=== PATIENT | female | born 2000 | race Caucasian/White ===

== ENCOUNTER → 2022-01-09 15:28 | Outpatient (CLI) | payer OTHER, SELFPAY ==
[2022-01-09 16:17] LABS: Add Manual Diff / Slide Review NO; Basophils Absolute Auto 0 /uL (0-100); Basophils Percent Auto 0.1 % (0-2); Eosinophils Absolute Auto 0 /uL (0-450); Eosinophils Percent Auto 0.3 % (2-4); Hematocrit 35.5 % (36-46); Hemoglobin 11.9 g/dL (12.0-16.0); Lymphocytes Absolute Auto 1400 /uL (1100-4500); Lymphocytes Percent Auto 16.9 % (25-40); Mean Corpuscular HGB Conc 33.6 % (30-36); Mean Corpuscular Hemoglobin 30.1 PG (26-34); Mean Corpuscular Volume 89.6 fL (80-100); Monocytes Absolute Auto 400 /uL (0-900); Monocytes Percent Auto 5.5 % (3-14); Neutrophils Absolute Auto 6200 /uL (1500-7000); Neutrophils Percent Auto 77.2 % (50-75); Platelet Count 158 X10^3/uL (150-400); Red Blood Cell Count 3.96 X10^6/uL (4.0-5.2)
[2022-01-09 19:09] LABS: Appearance Urine UA CLEAR; Bilirubin Urine UA NEGATIVE (NEGATIVE); Color Urine UA YELLOW; Glucose Urine UA NEGATIVE (Negative); Ketones Urine UA NEGATIVE (NEGATIVE); Leukocyte Esterase Urine UA NEGATIVE (NEGATIVE); Nitrite Urine UA NEGATIVE (Negative); Occult Blood Urine UA NEGATIVE (Negative); Protein Urine UA NEGATIVE (Negative); Specific Gravity Urine UA 1.015 (1.000-1.035); Urobilinogen Urine UA 0.2 E.U./dL (0.2)
[2022-01-09 19:28] LABS: Rubella Antibody IgG 35.1 IU/mL (>15)
[2022-01-09 19:33] LABS: Hepatitis B Surface Antigen NEGATIVE s/c (NEGATIVE)
[2022-01-09 19:47] LABS: HIV 1 & 2 Ab/Ag 4th Gen Combo NEGATIVE (NEGATIVE); Hep C Virus Ab w/Reflex Quant NEGATIVE s/c (NEGATIVE)
[2022-01-10 07:40] LABS: RPR Screen Non Reactive (Non Reactive)
[2022-01-10 11:25] LABS: Varicella IgG Antibody <135 index (Immune >165)
== END ==
PROVIDERS: Referring Provider Family Medicine; Visit Provider Family Medicine
DX: Z34.00 Encounter for supervision of normal first pregnancy, unspecified trimester (principal)
CPT/HCPCS: 36415; 80055; 81003; 86787; 86803; 86850; 86900; 86901; 87086; 87389

== ENCOUNTER → 2022-03-06 14:07 | Outpatient (CLI) | payer OTHER, SELFPAY | PROVIDERS: Visit Provider Family Medicine | DX: R35.0 Frequency of micturition (principal) | CPT/HCPCS: 87077; 87086; 87147 ==

== ENCOUNTER → 2022-03-18 15:47 | Outpatient (CLI) | payer OTHER, SELFPAY ==
[2022-03-18 16:54] LABS: Appearance Urine UA CLEAR; Bilirubin Urine UA NEGATIVE (NEGATIVE); Color Urine UA YELLOW; Glucose Urine UA NEGATIVE (Negative); Ketones Urine UA NEGATIVE (NEGATIVE); Leukocyte Esterase Urine UA NEGATIVE (NEGATIVE); Nitrite Urine UA NEGATIVE (Negative); Occult Blood Urine UA NEGATIVE (Negative); Protein Urine UA NEGATIVE (Negative); Specific Gravity Urine UA <=1.005 (1.000-1.035); Urobilinogen Urine UA 0.2 E.U./dL (0.2)
[2022-03-18 17:03] LABS: Bacteria Urine None Seen; Culture Indicated Urine Cult Not Indicated; RBC Urine None Seen (0-5/HPF); Urine Comments Microscopic Normal; WBC Urine None Seen (0-5/HPF)
== END ==
PROVIDERS: Referring Provider Family Medicine; Visit Provider Family Medicine
DX: O23.42 Unspecified infection of urinary tract in pregnancy, second trimester (principal)
CPT/HCPCS: 81001

== ENCOUNTER → 2022-03-19 10:54 | Outpatient (CLI) | payer OTHER, SELFPAY | PROVIDERS: Visit Provider Family Medicine | DX: N39.0 Urinary tract infection, site not specified (principal) | CPT/HCPCS: 87086 ==

== ENCOUNTER → 2022-03-26 14:24 | Outpatient (CLI) | payer OTHER, SELFPAY ==
--- NOTE | 2022-03-26 14:26 | DI.US.S_ITS ---
PROCEDURE: US OB >= 14 WEEKS FETUS INDICATIONS: 20 WEEK OB OUTSIDE/PRIOR DATING DATA: Last menstrual period (LMP): 10/28/2021 LMP-based estimated date of delivery (TAMEKA): 08/04/2022. First dating scan (date and location): 03/26/2022. Estimated date of delivery (TAMEKA) from first dating scan: 08/07/2022. The calculations are made using the ultrasound TAMEKA of 08/07/2022. TECHNIQUE: Real-time scanning was performed of the fetus, with image documentation and biometric measurements. COMPARISON: None. FINDINGS: General: A single living intrauterine gestation is present. Presentation: Breech. Placenta: Placental position is anterior , without previa. Amniotic fluid index: 6.4 cm. Maternal cervical canal: 4.9 cm long. Normal lower limit is 2.5 cm. biometrics: Biparietal diameter: 20 weeks 3 days Head circumference: 20 weeks 6 days Abdominal circumference: 21 weeks 1 day Femur length: 20 weeks 6 days Clinically estimated gestational age: 21 weeks 2 days Composite gestational age from present scan: 20 weeks 6 days Estimated weight and percentile: 392 g; 38th percentile Anatomic survey: Neuro: Ventricles are non-dilated at less than 10 mm. Cisterna magna is normal at 3-11 mm. Cerebellum is normal in size and morphology. Nuchal skin fold: Normal at less than 6 mm between 14-21 weeks gestational age. Face: Nose and lips, facial profile are normal. Spine: Suboptimally visualized. Heart: 4-chambered heart is present, with normal ventricular outflow tracts. Diaphragm: Diaphragm is intact. Stomach: Left-sided stomach is present. Kidneys: No hydronephrosis. Normal is less than 5 mm in 2nd trimester, less than 7 mm in 3rd trimester. Cord: Suboptimally visualized and placental cord insertion site. Bladder: Normal in size. Extremities: Right hand not well visualized. IMPRESSION: 1. 20 week 6 day single living IUP corresponding to ultrasound TAMEKA of 08/07/2022. 2. Limited anatomic survey as above. Follow-up recommended. 3. Amniotic fluid index less than the 5th percentile for age which can also be reassessed on follow-up examination. We strive to produce accurate, complete, and clear reports of imaging services. To assist us in improving patient care, this report was composed using standard report templates and voice recognition software. Therefore, it may contain abnormal punctuation, insertions and/or omissions. Occasional wrong-word or sound-alike substitutions may occur. Though we review the report and make efforts to correct it, we do recommend that the report be read carefully in proper context to recognize any text inaccuracies. Dictated by: Heath PATTON Interpreted: Barbara White MD on 03/27/2022 at 13:05 Transcribed by: KESHIA on 03/27/2022 at 13:10 Approved by: Barbara White M.D. on 03/27/2022 at 15:25
== END ==
PROVIDERS: Referring Provider Family Medicine; Visit Provider Family Medicine
DX: Z34.02 Encounter for supervision of normal first pregnancy, second trimester (principal); Z3A.20 20 weeks gestation of pregnancy
CPT/HCPCS: 76811

== ENCOUNTER → 2022-05-27 15:35 | Outpatient (CLI) | payer OTHER, SELFPAY ==
[2022-05-27 17:15] LABS: Add Manual Diff / Slide Review NO; Basophils Absolute Auto 0 /uL (0-100); Basophils Percent Auto 0.3 % (0-2); Eosinophils Absolute Auto 100 /uL (0-450); Eosinophils Percent Auto 0.7 % (2-4); Hematocrit 31.8 % (36-46); Hemoglobin 11.1 g/dL (12.0-16.0); Lymphocytes Absolute Auto 1700 /uL (1100-4500); Lymphocytes Percent Auto 17.7 % (25-40); Mean Corpuscular HGB Conc 34.9 % (30-36); Mean Corpuscular Hemoglobin 31.2 PG (26-34); Mean Corpuscular Volume 89.3 fL (80-100); Monocytes Absolute Auto 600 /uL (0-900); Neutrophils Absolute Auto 7400 /uL (1500-7000); Neutrophils Percent Auto 75.3 % (50-75); Platelet Count 158 X10^3/uL (150-400); Red Blood Cell Count 3.57 X10^6/uL (4.0-5.2); Red Cell Distribution Width 13.1 % (11.6-14.8); White Blood Cell Count 9.9 X10^3/uL (4.5-11.0)
[2022-05-27 17:37] LABS: GTT (PREG) 1 Hour PP 50gm Dose 145 mg/dL (76-139)
== END ==
PROVIDERS: Referring Provider Family Medicine; Visit Provider Family Medicine
DX: Z34.92 Encounter for supervision of normal pregnancy, unspecified, second trimester (principal); Z3A.25 25 weeks gestation of pregnancy
CPT/HCPCS: 36415; 82950; 85025

== ENCOUNTER → 2022-05-29 07:03 | Outpatient (CLI) | payer OTHER, SELFPAY ==
[2022-05-29 08:11] LABS: Glucose Fasting 81 mg/dL (70-100)
[2022-05-29 09:59] LABS: Glucose 1 Hour 164 mg/dL (70-170)
[2022-05-29 10:37] LABS: Glucose Tol Interpretation INTERPRETATION
[2022-05-29 11:05] LABS: Glucose 3 Hour 124 mg/dL (70-115)
[2022-05-29 11:34] LABS: Glucose 2 Hour 149 mg/dL (70-140)
== END ==
PROVIDERS: Referring Provider Family Medicine; Visit Provider Family Medicine
DX: O24.419 Gestational diabetes mellitus in pregnancy, unspecified control (principal)
CPT/HCPCS: 36415; 82951; 82952

== ENCOUNTER → 2022-06-12 08:51 | Outpatient (CLI) | payer OTHER, SELFPAY ==
--- NOTE | 2022-06-14 16:59 | DIAB.GDA ---
Initial Gestational Diabetes Assessment Name: Joyce Lockwood Date: 06/12/22 Time: 295-8900 Dx: Gestational Diabetes Provider: Manuelito TAMEKA: 08/11/22 Weeks: 31-32 Joyce presents today for initial visit. She is having a boy! Endorses FH of GDM with her mother x 2 pregnancies, and T2DM with maternal grandmother. Mother is an RN and has been about to provide some education on GDM and nutrition. States she has reduced carb intake drastically. Has been writing down food log and BG. Food journal indicates <175g CHO per day, below [employer] CONSULTING ARCHITECT for . 06/10 8am B: meatlover and egg bake and [facility] bar 20g CHO 11a L: low carb casserole, meat, veggies, + cottage cheese 0-10g CHO 7p D: salad, 0 sugar yogurt with granola Limited snacks Beverages: 96-128oz water, Sf beverages 17oz Anthropometrics: Ht: 65 Wt: 170# reported Prepregnancy wt: 155# Physical Activity: 30-45 min walks daily Self-Monitoring Blood Glucose: Checking FBG and 2 hour pc. All FBG in goal. Most postprandial <100 mg/dL supporting reported low carb diet. Goal for 100-120mg/dL 2 hours postprandial. One elevation after fast food intake. Date Pre Post Pre Post Pre Post HS 06/06 71 119 70 103 06/07 82 98 77 129 Fast food 06/08 76 74 95 79 06/09 77 112 78 06/10 80 82 78 109 06/11 77 79 94 79 06/12 76 Diabetes Medications: None Pertinent Labs: screen: 145 H; OGTT: 81, 164, 149H, 124H Nutrition Rx: Carbohydrates: Daily: 180-210g CHO Meal: 45-60g lunch and dinner; 30g breakfast Snack: 15-30g Nutrition Diagnosis: Altered nutrition related lab value r/t GDM dx aeb recent OGTT Inadequate CHO intake for r/t new GDM dx, nutrition knowledge deficit, and reduction in carbs to avoid hyperglycemia aeb pt report, postprandial bg <100mg/dL. Inconsistent energy intake r/t nutrition knowledge deficit aeb diet recall with >5 hours between meals sometimes Intervention: This participant was very receptive. Provided appropriate educational handouts. Discussed the following topics: GDM pathophysiology and impact of hyperglycemia on mom and baby Risk for T2DM for mom and baby in the future Ways to reduce risk T2DM Plate Method, meal timing, carb counting, pairing macronutrients and spreading out CHO for better BG management Blood glucose goals (FBG: <95 and 2 hour 100-120 mg/dL); importance of checking 4x per day (FBG and pc) Impact of macronutrients on blood glucose Recommended servings for carbohydrates at meals and snacks Brainstormed appropriate meal plan based on her food preferences Role of physical activity and following provider guidelines for safety Goals: Add some carbs to meals (start with 45g CHO at lunch and dinner, min 30g) Add afternoon snack- new Pair CHO and pro for meals/snacks Follow-up: FARZANA MOORE follow-up in two weeks Xin Sim RDN, OSCAR Certified Diabetes Care and Cat Skinner T: [phone] F: [phone] [email or web address] Thank you for this referral
== END ==
PROVIDERS: Referring Provider Family Medicine; Visit Provider Family Medicine
DX: O24.419 Gestational diabetes mellitus in pregnancy, unspecified control (principal); Z3A.31 31 weeks gestation of pregnancy; Z71.3 Dietary counseling and surveillance
CPT/HCPCS: 97802

== ENCOUNTER → 2022-06-26 08:49 | Outpatient (CLI) | payer OTHER, SELFPAY ==
--- NOTE | 2022-07-01 16:42 | DIAB.GDFU ---
Follow-up Gestational Diabetes Assessment Name: Joyce Lockwood Date: 06/26/22 Time: 572-224d Dx: Gestational Diabetes Provider: Manuelito TAMEKA: 08/11/22 Weeks: 32-33 Joyce presents for follow-up GDM visit. States she has had a few meals with >60g CHO, which have resulted in hyperglycemia, ie raisin bran, pasta, fast food with soda. Last visit she was not eating much carbs at all. This visit, seems difficult to balance the meals with too much vs not enough. Will review carb portions today. Has added afternoon snack and pairing macronutrients as discussed last visit. Diet recall: 7-8a: oatmeal with almond bar and almond or cheese 11a: wrap with cheese and meat and chips 3p: apple and PB 7p: pro with veggie and 1c CHO (mac n cheese, or rice) 9p: half apple wit hPB or crackers with cheese or low kcal ice cream States she is hopeful that her spouse will return from deployment in July. Anthropometrics: Ht: 65 Wt: 173# Prepregnancy wt: 155# Physical Activity: waking daily 30-45min Self-Monitoring Blood Glucose: FBG in goal. Some elevated pc readings r/t higher carb intake. 28% elevated postprandial readings. Date Pre Post Pre Post Pre Post HS 06/20 81 102 102 96 06/21 82 90 129 fast food and soda 75g+ 154 2c pasta 90g 06/22 79 121 68 94 8/7 81 106 102 90 8 80 73 93 130 8/9 80 128 raisinbran 84 78 8/ 77 Diabetes Medications: None Pertinent Labs: screen: 145 H; OGTT: 81, 164, 149H, 124H Nutrition Rx: Carbohydrates: Daily: 180-210g CHO Meal: 45-60g lunch and dinner; 30g breakfast Snack: 15-30g Nutrition Diagnosis: Altered nutrition related lab value r/t GDM dx aeb recent OGTT Inadequate CHO intake for r/t new GDM dx, nutrition knowledge deficit, and reduction in carbs to avoid hyperglycemia aeb pt report, postprandial bg <100mg/dL. - improved Inconsistent energy intake r/t nutrition knowledge deficit aeb diet recall with >5 hours between meals sometimes- improved Intervention: This participant was very receptive. Provided appropriate educational handouts. Discussed the following topics: Recent blood sugar results and impact of food and hormones Review of macronutrient recommendations during Reinforced 45-60g CHO per meal and what that may look like Benefits, resources, and nutrition for recommendations for nutrition and physical activity recommendations for T2DM risk reduction OGTT at 6-12 weeks Potential for checking blood sugars twice per week (goal: fasting <100 mg/dL and 2 hour pc <140 mg/dL) until 6 week check-up HgA1c q 1-3 years. Goals: Add some carbs to meals (start with 45g CHO at lunch and dinner, min 30g)- met Add afternoon snack- met Pair CHO and pro for meals/snacks - met Keep meals to 45-60g CHO for lunch and dinner (about one cup) - new Try writing down foods when BG are elevated- new Follow-up: FARZANA MOORE follow-up in two weeks Xin Sim RDN, OSCAR Certified Diabetes Care and Litigation Partner T: [phone] F: [phone] [email or web address] Thank you for this referral
== END ==
PROVIDERS: PCP Physician Assistant; Referring Provider Family Medicine; Visit Provider Family Medicine
DX: O24.419 Gestational diabetes mellitus in pregnancy, unspecified control (principal); Z3A.32 32 weeks gestation of pregnancy; Z71.3 Dietary counseling and surveillance
CPT/HCPCS: 97803

== ENCOUNTER → 2022-07-16 14:50 | Outpatient (CLI) | payer OTHER, SELFPAY ==
--- NOTE | 2022-07-16 15:48 | DIAB.GDFU ---
Follow-up Gestational Diabetes Assessment Name: Joyce Lockwood Date: 07/16/22 Time: 2-215p Dx: Gestational Diabetes Provider: Manuelito TAMEKA: 08/11/22 Weeks: 36 Joyce presents for a quick GDM check-in. BG and diet seem to be going well. Weight gain seems to be trending well. Reports surprisingly low BG with egg noodles, which seem to be lower in carb and higher in pro than some pastas. 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 Anthropometrics: Wt: 176# Prepregnancy wt: 150# Physical Activity: Not discussed today Self-Monitoring Blood Glucose: All in goal. Some pc readings <100 however she reports adequate CHO intake and pairing with pro Diabetes Medications: None Pertinent Labs: screen: 145 H; OGTT: 81, 164, 149H, 124H Nutrition Rx: Carbohydrates: Daily: 180-210g CHO Meal: 45-60g lunch and dinner; 30g breakfast Snack: 15-30g Nutrition Diagnosis: Altered nutrition related lab value r/t GDM dx aeb recent OGTT Intervention: This participant was very receptive. Provided appropriate educational handouts. Discussed the following topics: Recent blood sugar results Carb portions at meals and label reading knowledge Future pregnancies and risk of GDM Goals: Keep meals to 45-60g CHO for lunch and dinner (about one cup) - met Try writing down foods when BG are elevated- d/c Follow-up: FARZANA MOORE follow-up prn Xin Sim RDN, OSCAR Certified Diabetes Care and Package Delivery Driver T: [phone] F: [phone] [email or web address] Thank you for this referral
== END ==
PROVIDERS: PCP Physician Assistant; Referring Provider Family Medicine; Visit Provider Family Medicine
DX: O24.419 Gestational diabetes mellitus in pregnancy, unspecified control (principal); Z3A.36 36 weeks gestation of pregnancy; Z71.3 Dietary counseling and surveillance
CPT/HCPCS: 97803

== ENCOUNTER → 2022-07-16 14:51 | Outpatient (CLI) | payer OTHER, SELFPAY ==
[2022-07-17 11:37] LABS: Strep Grp B PCR POS for Grp B Strep
== END ==
PROVIDERS: PCP Physician Assistant; Visit Provider Family Medicine
DX: Z36.85 Encounter for antenatal screening for Streptococcus B (principal)
CPT/HCPCS: 87653

== ENCOUNTER 2022-08-13 19:03 | Inpatient (IN) | payer OTHER, SELFPAY ==
[2022-08-13 19:29] VITALS: BP 123/62
[2022-08-13 20:16] LABS: Add Manual Diff / Slide Review NO; Basophils Absolute Auto 0 /uL (0-100); Basophils Percent Auto 0.3 % (0-2); Eosinophils Absolute Auto 0 /uL (0-450); Eosinophils Percent Auto 0.4 % (2-4); Hematocrit 30.1 % (36-46); Hemoglobin 10.1 g/dL (12.0-16.0); Lymphocytes Absolute Auto 1800 /uL (1100-4500); Lymphocytes Percent Auto 21.9 % (25-40); Mean Corpuscular HGB Conc 33.6 % (30-36); Mean Corpuscular Volume 86.5 fL (80-100); Monocytes Absolute Auto 700 /uL (0-900); Monocytes Percent Auto 8.3 % (3-14); Neutrophils Absolute Auto 5700 /uL (1500-7000); Neutrophils Percent Auto 69.1 % (50-75); Platelet Count 158 X10^3/uL (150-400); Red Blood Cell Count 3.48 X10^6/uL (4.0-5.2); Red Cell Distribution Width 13.9 % (11.6-14.8); White Blood Cell Count 8.2 X10^3/uL (4.5-11.0)
[2022-08-13] MEDS: DINOPROSTONE VAG (CERVIDIL) 10 MG VAG (20:18)
[2022-08-13 21:56] LABS: COVID19 -Nasal RAPID Negative (Negative)
[2022-08-14] MEDS: PENICILLIN G POTASSIUM 5,000,000 UNIT in DEXTROSE 5% IN WATER 250 ML 250 UNIT IV (06:54)
--- NOTE | 2022-08-14 10:37 | PM.OBHP.IH.1 ---
OB HPI Date/Time Date of admission: 08/14/22 Date Patient Seen: 08/14/22 History of Present Condition Chief complaint: TAMEKA Calculator Estimated Delivery Date Method Current WG Current Estimate 08/11/22 Manual 40w 3d Final TAMEKA - FLORENCIO Other Estimates 08/11/22 LMP (Uncertain) 40w 3d 08/09/22 Ultrasound #1 40w 5d Estimated Gestational Age (weeks): 40w3d : 1 Para: 0 Narrative: Pt is a 22yo at 40w3d here for elective IOL. She has been feeling her baby move regularly. She did lose her mucus plug overnight with some blood discharge, but otherwise no vaginal bleeding. Pt denies any LOF. She is khari intermittently, primarily in her back. Her has been complicated by GDMA1 with excellent blood sugar control care: good care, initiated at week # (9) and pounds weight gain (28) Dating criteria OB: LMP confirmed by 1st trimester US Ultrasounds: normal 1st trimester US and normal mid trimester US Obstetrical complications: gestational diabetes Medical complications OB: none Preadmission Labs Last OB Lab Results: Blood Type A Positive 08/13/22 19:50 Antibody Screen Negative 08/13/22 19:50 Hematocrit 30.1 % (36-46) L 08/13/22 19:50 Hemoglobin 10.1 g/dL (12.0-16.0) L 08/13/22 19:50 Hepatitis B Surface Antigen Negative s/c (NEGATIVE) 01/09/22 15:42 Hepatitis C Antibody Negative s/c (NEGATIVE) 01/09/22 15:42 Rubella Antibody 35.1 IU/mL (>15) 01/09/22 15:42 Varicella-Zoster IgG Antibody <135 index (Immune >165) L 01/09/22 15:42 Glucose 1 Hour 145 mg/dL (76-139) H 05/27/22 15:53 Group B Streptococcus (PCR) Pos for grp b strep H 07/16/22 14:51 Glucose Tolerance Testing: Fasting (81), 1 hr (164), 2 hr (149) and 3 hr (124) -: Urine: negative External Labs -: Urine: negative Evaluation Evaluation Variability: Moderate (11-25) monitor accelerations: Present Monitor Decelerations: Absent Contraction Frequency (minutes): 5 Uterine Contraction Intensity: Mild Status: Category l Dilation (cm): 3 Effacement (%): 80 Dilation: 3-4 cm Effacement: >/=80% station: -1 Position of cervix: mid Consistency: soft Gates score: 10 PFSH Medical History (Updated 06/12/22 @ 15:06 by Rossana Billings MD) COVID UTI (urinary tract infection) Surgical History (Updated 12/27/21 @ 15:19 by Shwetha Oliva, RN) H/O wisdom tooth extraction Family History (Updated 12/27/21 @ 15:21 by Shwetha Oliva, RN) Father Hypertension Grandmother Diabetes mellitus Breast cancer Grandfather Diabetes mellitus Social History marital status: unmarried,living together household members: significant other and friend(s) lives independently: Yes housing: apartment pets and animals: No education level: high school occupational status: employed ([employer] the [employer]) current occupational exposures/hazards: No seatbelt use: always water heater temp set < 120 deg: Yes (will check) working smoke detector in home: Yes firearms in home: Yes firearms unloaded and locked: Yes do you feel safe at home: Yes Smoking Status: Former smoker second hand exposure: No alcohol intake: former substance use type: does not use during the past year weight has: remained stable well-balanced diet: daily or most days daily servings fruits/ve-4 caffeine: Yes (200mg a day) Type(s) of exercise: walking Meds Home Medications and Allergies Home Medications Medication Instructions Recorded Confirmed Type prenat.vits,belgica,ngr-fnro-ocdcn 1 tab PO DAILY 12/26/21 08/13/22 History double electric breast pump and #1 05/28/22 08/13/22 Rx supplies glucometer #1 05/30/22 08/13/22 Rx lancets #90 05/30/22 08/13/22 Rx test strips #90 05/30/22 08/13/22 Rx valacyclovir 1 gram tablet 1,000 mg PO BID #20 tabs 07/23/22 08/13/22 Rx Allergies Allergy/AdvReac Type Severity Reaction Status Date / Time No Known Drug Allergies Allergy Unverified 08/13/22 14:02 OB Exam Narrative Exam Narrative: Gen: NAD, sitting comfortably in bed, appears well CV: RRR, no murmurs Resp: clear to auscultation bilaterally Abd: soft, nontender, gravid Ext: no edema Objective Labs Result Diagrams: 08/13/22 19:50 Labs: Laboratory Results - last 24 hr 08/13/22 08/13/22 08/13/22 19:50 19:50 19:50 WBC 8.2 RBC 3.48 L Hgb 10.1 L Hct 30.1 L MCV 86.5 MCH 29.0 MCHC 33.6 RDW 13.9 Plt Count 158 Neut % (Auto) 69.1 Lymph % (Auto) 21.9 L [place] % (Auto) 8.3 Eos % (Auto) 0.4 L Baso % (Auto) 0.3 Neut # (Auto) 5700 Lymph # (Auto) 1800 [place] # (Auto) 700 Eos # (Auto) 0 Baso # (Auto) 0 SARS-CoV-2 (PCR) Negative Blood Type A Positive Antibody Screen Negative Assessment and Plan Assessment and Plan Assessment and Plan narrative: 22yo at 40w3d here for elective IOL. complicated by GDMA1. GBS positive, Rh positive. - Expectant management, anticipate - FHT reassuring - GBS positive, penicillin prophylaxis initiated - Desires natural methods for pain control - Start pitocin, titrate as tolerated
[2022-08-14] MEDS: PENICILLIN G POTASSIUM 3,000,000 UNIT/50 ML FROZ.PIGGY 100 UNIT IV ×3 (11:00→21:05)
[2022-08-14] MEDS: OXYTOCIN PREMIX 30 UNIT/500 ML PLAST..BAG IV (13:33)
[2022-08-14] MEDS: ONDANSETRON 4 MG/2 ML INJ IV (16:00)
--- NOTE | 2022-08-14 17:13 | PM.OBPNLAB ---
Date/Time Date Patient Seen: 08/14/22 Time Patient Seen: 17:13 Pain Control Pain control: tolerating well Pelvic Exam Dilation (cm): 3.5 Effacement (%): 90 station: -1 Amniotic membrane status: Ruptured Comments: After informed consent, AROM performed with production of clear fluid. Contractions Pitocin rate (mU/min): 7 Contraction frequency (min): 3 Contraction intensity: Mild Status status: Category l Heart Rate Baseline: 135 Monitor Accelerations: Present Monitor Decelerations: Absent Monitor Variability: Moderate Assessment and Plan Comments: 22yo at 40w3d here for elective IOL.? complicated by GDMA1.? AROM performed with production of clear fluid. Minimal cervical change thus far. GBS positive, Rh positive. - Expectant management, anticipate - FHT reassuring - GBS positive, continue penicillin prophylaxis - Desires natural methods for pain control - Continue pitocin, titrate as tolerated
[2022-08-14] MEDS: fentaNYL 100 MCG/2 ML INJ 50 MCG IV (20:15)
--- NOTE | 2022-08-15 04:50 | P.PCNOB_ITS ---
Labor & Delivery Delivery date: 08/15/22 Cervical ripening method: per Cervidil protocol Induction method: per pitocin protocol Delivery augmentation: rupture of membranes Delivery monitor: external FHT and external uterine Route of delivery: Episiotomy description: None L&D Laceration Description: Perineal - 2nd Degree Delivery repair: chromic Estimated blood loss (mL): 25 Anesthesia Type: Other (Nitrous oxide) Complications: None Narrative: PROCEDURE: at 40w3d presented for elective IOL and was admitted to Labor and Delivery. She received cervidil for IOL, followed by pitocin. The patient progressed through the 1st stage over 6 hours. FHT were Category I during the 1st stage. Pain was controlled with nitrous oxide. After adequate GBS prophylaxis, AROM was performed with production of clear fluid. The patient progressed through the 2nd stage over 2 hours and delivered a viable male with compound presentation with the right hand with APGARs 1/3/5 at 1:11 via without complications. During the second stage there was a single prolonged decel to 100bpm for 6 minutes that recovered with hands and knees positioning, approximately 1.5 hrs prior to delivery. FHT were otherwise Category II with intermittent variable decels with good recovery to baseline, moderate variability, and accels present. Nuchal and body cord x1 were reduced at the perineum. There was terminal meconium present. The cord was promptly cut and clamped due to no respiratory effort and poor tone, and the baby was taken to the warmer for resuscitation. The perineum and vagina were inspected with 2nd degree laceration repaired with 2-O Chromic. PREPROCEDURE DIAGNOSIS: Intrauterine at 40w4d GDMA1 GBS positive RH positive POSTPROCEDURE DIAGNOSIS: Intrauterine at 40w4d, delivered Same as preprocedure [place] Baby 1: gender: Male Presentation: compound Position: Right Occiput Anterior Placenta delivery description: Spontaneous Cord Vessel Description: 3 Vessels, Nuchal Cord and Around Body x1 score (1 min): 1 score (5 min): 3 score (10 min): 5 weight: 7 lb 11.106 oz Narrative: The baby required PPV briefly, followed by prolonged CPAP. Was ultimately transitioned to high flow NC. He continued to have poor tone, and cooling was ultimately initiated due to concerns for HIE. CXR revealed right sided pneumothorax. He was tranferred to the for ongoing care. Plan for aftercare: Routine care
--- NOTE | 2022-08-15 05:38 | PM.OBDS.1 ---
Discharge Providers Provider Date of admission: 08/13/22 19:03 Discharge Date: 08/15/22 Primary care physician: Vinnie Hays PA-C Discharge provider: Rossana Billings MD Summary Hospital Course Diagnoses: 40w4d gestation GBS positive Rh positive GDMA1 Hospital Course: The pt presented for elective IOL. She received cervidil followed by pitocin for IOL. AROM was performed with production of clear fluid. She used nitrous for pain control. She progressed to complete and had an of a viable baby boy without complications. Terminal meconium and nuchal and body cord x 1 were present. 2nd degree perineal laceration was then repaired. The infant required resuscitation, and was ultimately transferred to due to ongoing oxygen requirement with pneumothorax and for cooling. The pt requested early discharge to be with her baby. At the time of discharge she was voiding, ambulating and passing flatus without difficulty. She had been able to pump with colostrum production. Her pain was well controlled. Her lochia was appropriate, and fundus was well below her umbilicus. She will f/u in 6 weeks for check. Peripartum Data Infant Delivery Method: Natural Vaginal Laceration Description: Perineal - 2nd Degree Episiotomy description: None Procedures: spontaneous vaginal delivery complications: none 1: Gender: Male Disposition of : NICU Discharge Diagnosis (1) GDM (gestational diabetes mellitus): Status: Acute (2) Spontaneous vaginal delivery: Status: Acute Status at Discharge Cognitive/behavioral status at discharge: oriented Functional status at discharge: independent ambulation Overall status at discharge: patient is progressing back to baseline Time Spent with Patient Time attestation: Total time spent providing and/or coordinating discharge services: Objective Labs Result Diagrams: 08/13/22 19:50 Exam Narrative Exam Narrative: Gen: NAD, sitting comfortably in bed, appears well CV: RRR, no murmurs Resp: clear to auscultation bilaterally Abd: soft, appropriately tender, fundus firm and below the umbilicus, nondistended Ext: no edema Discharge Plan Discharge Plan Patient Disposition: Home Discharge orders & Medications Prescriptions: Continued (DME) double electric breast pump and supplies See Rx Instructions .ROUTE .MEDSUPPLY Qty: 1 0RF Rx Instructions: As directed valacyclovir 1 gram tablet 1,000 mg PO BID Qty: 20 0RF prenat.vits,belgica,njk-gcmf-hluby Tablet 1 tab PO DAILY Discontinued (DME) glucometer See Rx Instructions .Route .MEDSUPPLY Qty: 1 2RF Rx Instructions: As directed (DME) test strips See Rx Instructions .Route .MEDSUPPLY Qty: 90 3RF Rx Instructions: As directed (DME) lancets See Rx Instructions .Route .MEDSUPPLY Qty: 90 3RF Rx Instructions: As directed Follow up/Referrals: Vinnie Hays PA-C [Primary Care Provider] - Rossana Billings MD [Physician] - 6 Weeks Diet/Activity/Treatments Diet: Diet as Tolerated and Regular Skin/Wound/Dressing Care Report to your healthcare provider any signs of infection, such as:: chills, fever, increased pain and unusual drainage Visit Report/Discharge Packet Instructions: DI for Labor and Delivery, Vaginal Stand Alone Forms: Discharge: Care Visit Report Forms: Patient Portal/API, Stroke Signs & Symptoms Discharge Data Primary Care Provider: Vinnie Hays Discharges patient from system. Discharge Date/Time: 08/15/22 08:11
[2022-08-15] MEDS: IBUPROFEN 600 MG TABLET PO (06:36)
[2022-08-15] MEDS: ACETAMINOPHEN 325 MG TABLET 650 MG PO (06:36)
[2022-08-15] MEDS: DERMOPLAST SPRAY 20% 60 ML 1 SPRAY TOP (06:37)
[2022-08-15 08:00] VITALS: BP 126/73; PULSE 91; RESP 16; TEMP 36.6
--- NOTE | 2022-08-16 16:38 | PATH_ITS ---
[facility] Accession Number: [id number] . 01 Material submitted: . placenta - PLACENTA . 01 Clinical history: . 08/26/2022 BIOPSY SITE VERIFIED BY DOUG (GLOBAL PROCESS OWNER) Angeline IRIZARRY . 01 Diagnosis: A. Placenta, 40 Weeks And 1/7 Days, Vaginal Delivery: Intact pinedo placenta (424 grams), small for gestational age (less than third percentile), showing villi consistent with third trimester gestational age and with accelerated maturation. Three-vessel umbilical cord with furcate velamentous insertion; no evidence of vasculitis, true knots, or thrombosis. membranes with pigment/meconium-laden macrophages, mild to focally moderate chorioamnionitis, squamous metaplasia/reactive changes, and focal amnion nodosum to the amniotic layer. Placenta parenchyma with an intervillous infarct (1 cm, less then 5% of placenta volume) and features consistent with chorangiosis; no evidence of villitis or abruption. [facility] 08/29/2022 1023 Local . 01 Comment: PAS fungal stain is pending, and the results will be reported in an addendum. . 01 Electronically signed: Avel Castro MD, Pathologist NPI- [id number] . 01 Gross description: . The specimen is received fresh and subsequently placed in formalin per Dr. Yates, labeled with the patient's name and no additional designation, and consists of a 424 gram (trimmed weight) ovoid pinedo placenta measuring 17.4 x 14.3 x 2.6 cm with no succenturiate lobes present. . The umbilical cord has a furcate velamentous insertion measuring 1.2 cm from the nearest placental disc edge and is received in two portions; attached (7.1 cm in length and 1.0 cm in diameter) and detached (33.5 x 0.9 cm) with no knots identified, and a leftward twist with an index of 1.5 twists per 5 cm. Sectioning reveals unremarkable trivascular architecture. . The membranes are reece and translucent with no areas of discoloration or thickening identified; however, a vessel measuring approximately 8 cm in length is identified fully within the membrane adjacent to the umbilical cord insertion. The membranes insert at the margin. . The surface is blue-calderon with arborizing vasculature and a single reece firm area located eccentrically measuring 1.9 cm in greatest dimension. No additional discoloration is identified. The maternal surface is apparently complete with a small amount of white discoloration throughout the maternal surface occupying less than 10% of the surface. Sectioning reveals a small pale discolored area located centrally measuring 0.4 cm in greatest dimension. No additional areas of discoloration or lesions are identified. [employer] sections are submitted as follows: . A1: [employer] cord to include membranous insertion. A2: Membrane roll to include vessel within membranes. A3: and maternal surface discolorations. A4: Cut surface discoloration. A5: Central full-thickness section. ([id number]) /MRV 08/20/2022 1156 Local . 01 Pathologist provided ICD-10: O24.410 . 01 CPT . 822828 Specimen Comment: A courtesy copy of this report has been sent to [phone] Performed at: 01 [facility] [address] [place] [address], [place], [place] [id number] MD Asaf Yates MD Phone: [phone]
== END 2022-08-15 08:11 | disposition home or self-care (01) | DRG 807 ==
PROVIDERS: Admitting Provider Family Medicine; PCP Physician Assistant; Referring Provider Family Medicine; Visit Provider Family Medicine
DX: O24.420 Gestational diabetes mellitus in childbirth, diet controlled (principal); Z37.0 Single live birth; Z3A.40 40 weeks gestation of pregnancy; O99.824 Streptococcus B carrier state complicating childbirth; Z67.10 Type A blood, Rh positive; O70.1 Second degree perineal laceration during delivery; O76 Abnormality in fetal heart rate and rhythm complicating labor and delivery; O69.81X0 Labor and delivery complicated by cord around neck, without compression, not applicable or unspecified; Z20.822 Contact with and (suspected) exposure to COVID-19
CPT/HCPCS: 36415; 59050; 59200; 59400; 85025; 86850; 86900; 86901; 87635; C9803; G0379; J2405; J2540; J2590; J3010

== ENCOUNTER → 2022-10-15 07:56 | Outpatient (CLI) | payer OTHER, SELFPAY ==
[2022-10-15 10:15] LABS: Glucose Tol Interpretation INTERPRETATION
[2022-10-15 11:10] LABS: Glucose 1 Hour 90 mg/dL (70-170)
[2022-10-15 11:29] LABS: Glucose 2 Hour 96 mg/dL (70-140)
[2022-10-15 11:52] LABS: Glucose Fasting 81 mg/dL (70-100)
== END ==
PROVIDERS: PCP Physician Assistant; Referring Provider Family Medicine; Visit Provider Family Medicine
DX: O24.419 Gestational diabetes mellitus in pregnancy, unspecified control (principal); Z3A.00 Weeks of gestation of pregnancy not specified
CPT/HCPCS: 36415; 82951; 82952

== ENCOUNTER → 2025-03-14 08:19 | Outpatient (CLI) | payer OTHER, SELFPAY ==
[2025-03-14 09:16] LABS: Alanine Aminotransferase 16 IU/L (<35); Albumin 4.4 g/dL (3.5-5.0); Albumin Globulin Ratio 1.8 (1.0-2.8); Alkaline Phosphatase 42 U/L (38-126); Aspartate Aminotransferase 20 IU/L (14-36); BUN Creatinine Ratio 12.5 (6-22); Bilirubin Total 0.7 mg/dL (0.2-1.3); Blood Urea Nitrogen 8 mg/dL (7-17); Calcium 8.9 mg/dL (8.4-10.2); Carbon Dioxide 23 mmol/L (22-32); Chloride 107 mmol/L (98-107); Estimated Glomerular Filt Rate > 60 mL/min (>60); Globulin 2.4 g/dL (1.7-4.1); Glucose 101 mg/dL (70-99); HEMOLYSIS < 15 (0-50); Potassium 4.3 mmol/L (3.4-5.1); Sodium 137 mmol/L (137-145); Total Protein 6.8 g/dL (6.3-8.2)
[2025-03-14 09:31] LABS: Appearance Urine UA CLEAR; Bilirubin Urine UA NEGATIVE (NEGATIVE); Color Urine UA YELLOW; Glucose Urine UA NEGATIVE (Negative); Ketones Urine UA NEGATIVE (NEGATIVE); Leukocyte Esterase Urine UA NEGATIVE (NEGATIVE); Nitrite Urine UA NEGATIVE (Negative); Occult Blood Urine UA NEGATIVE (Negative); Protein Urine UA NEGATIVE (Negative); Urobilinogen Urine UA 0.2 E.U./dL (0.2)
== END ==
PROVIDERS: PCP Physician Assistant; Referring Provider Chiropractor; Visit Provider Chiropractor
DX: E11.9 Type 2 diabetes mellitus without complications (principal)
CPT/HCPCS: 36415; 80053; 81003